=== PATIENT | male | born 1955 | race Caucasian/White ===

== ENCOUNTER 2016-11-10 21:26 | Emergency (ER) | payer OTHER ==
[~2016-11-10] VITALS: Ht 167.6 cm; Wt 80.7 kg
[2016-11-10 21:32] VITALS: BP_SYST 147
--- NOTE | 2016-11-10 21:35 | NUR ---
Placed in room hallway. To gown for exam. Side rails up. Report given to PAU Lim.
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
--- NOTE | 2016-11-10 21:35 | NUR ---
ER at bedside examining patient.
[2016-11-10] MEDS ORDERED: KETOROLAC TROMETHAMINE 30 MG VIAL IM ONE (22:15)
[2016-11-10 22:55] VITALS: BP_SYST 135
--- NOTE | 2016-11-10 22:55 | NUR ---
Patient given written and verbal discharge instructions and verbalizes understanding. ER MD discussed with patient the results and treatment provided. Patient in stable condition. ID arm band removed. Rx of tylenol given. Patient educated on pain management and to follow up with PMD. Pain Scale 0/10. Opportunity for questions provided and answered.
== END 2016-11-10 22:55 | disposition home or self-care (01) ==
LOC: SED 21:26
DX: G89.29 Other chronic pain (principal); M79.605 Pain in left leg; I10 Essential (primary) hypertension; F17.200 Nicotine dependence, unspecified, uncomplicated; Z59.0 Homelessness; Z76.5 Malingerer [conscious simulation]
CPT/HCPCS: 73552; 96372; 99284; J1885

== ENCOUNTER 2016-11-11 20:10 | Emergency (ER) | payer OTHER ==
[~2016-11-11] VITALS: Ht 167.6 cm; Wt 81.6 kg
[2016-11-11 20:10] VITALS: BP_SYST 150
[2016-11-11] MEDS ORDERED: KETOROLAC TROMETHAMINE 60 MG/2 ML VIAL IM ONE (20:30)
[2016-11-11 22:23] VITALS: BP_SYST 135
== END 2016-11-11 22:23 | disposition home or self-care (01) ==
LOC: SED 20:10
DX: S42.022A Displaced fracture of shaft of left clavicle, initial encounter for closed fracture (principal); I10 Essential (primary) hypertension; F10.10 Alcohol abuse, uncomplicated; Z59.0 Homelessness; W19.XXXA Unspecified fall, initial encounter; Y93.89 Activity, other specified; Y99.8 Other external cause status; Y92.89 Other specified places as the place of occurrence of the external cause
CPT/HCPCS: 73030; 96372; 99284; J1885

== ENCOUNTER 2017-08-11 13:12 | Emergency (ER) | payer MEDICAID ==
[~2017-08-11] VITALS: Ht 177.8 cm; Wt 90.7 kg
[~2017-08-11 13:12] MED LIST: BUPR100T13 PO; HYDR-2470 PO; IBUP-1479 PO
[2017-08-11 13:17] VITALS: BP_SYST 101
== END 2017-08-11 14:28 | disposition still patient (30) ==
LOC: SED 13:12
DX: G89.29 Other chronic pain (principal); M79.1 Myalgia; I10 Essential (primary) hypertension; Z53.20 Procedure and treatment not carried out because of patient's decision for unspecified reasons
CPT/HCPCS: 99283